=== PATIENT | female | born 1940 | race African-American/Black ===

== ENCOUNTER 2017-01-25 19:30 | Emergency (ER) | payer MEDICARE, BC ==
[~2017-01-25 19:30] MED LIST: ALBUTEROL INHALER; ASPIRIN PO; ASPIRIN81 M1; ATACAND HCT 32/1 TAB PO; COUMADIN5 MG PO; DIAZEPAM PO; DIFLUCAN PO; FAMOTIDINE PO; FERGON PO; FERROUS SU324 ( 65 ) PO; HYDROCODONE/APA1 T16 PO; LEVAQUIN PO; LISINOPRIL-HCTZ1 T14 PO; LORTAB 5-325 M1 EACH; LYRICA PO; LYRICA100 MG PO; MACROBID100 M1 PO; MECLIZINE HCL25 M1 PO; MULTIVITAMIN1 UDCAP; OYSTER CALCIUM500 MG PO; PREMARIN PO; PRILOSEC PO; PRILOSEC40 MG PO; PYRIDIUM100 MG PO; ULTRAM PO; VOLTAREN75 MG PO; WARFARIN PO; ZESTORETIC PO; ZOFRAN ODT4 MG PO
[2017-01-25] MEDS ORDERED: ELIQUIS2.5 MG (19:43)
[2017-01-25] MEDS ORDERED: LORTAB 7.5-3251 EACH (19:44)
== END 2017-01-25 20:23 | disposition home or self-care (01) ==
LOC: SED 19:30
DX: R11.2 Nausea with vomiting, unspecified (principal); I10 Essential (primary) hypertension; K21.9 Gastro-esophageal reflux disease without esophagitis; Z88.2 Allergy status to sulfonamides; Z88.5 Allergy status to narcotic agent; Z88.8 Allergy status to other drugs, medicaments and biological substances; Z88.1 Allergy status to other antibiotic agents; Z79.899 Other long term (current) drug therapy
CPT/HCPCS: 99282